=== PATIENT | male | born 1960 | race Caucasian/White ===

== ENCOUNTER 2017-11-11 14:17 | Inpatient (IN) | payer OTHER ==
[~2017-11-11] VITALS: Ht 182.9 cm; Wt 111.6 kg
[~2017-11-11 14:17] MED LIST: ACTOS PO; AMLODIPINE PO; ATORVASTATIN CA20 MG PO; DIOVAN PO; DIOVAN160 MG PO; FUROSEMIDE40 MG PO; HUMALOG; HUMALOG100 UNITS/; JANUVIA PO; LANTUS; LANTUS100 UNITS/ SC; LIPITOR PO; METFORMIN PO; METOPROLOL PO; METOPROLOL SUCC25 MG PO; PLAVIX PO; POTASSIUM CHLO10 MEQ PO; RANEXA500 MG PO; TRICOR PO
[2017-11-11 14:39] LABS: BASOPHILS % 0.4 % (0.0-1.0); EOSINOPHILS # (AUTO) 0.2 (0.0-0.4); EOSINOPHILS % 1.4 % (0.0-6.0); HEMATOCRIT 38.2 % (38.2-49.6); HEMOGLOBIN 13.1 g/dL (14.0-18.0); LYMPHOCYTES # (AUTO) 3.9 (1.0-3.2); LYMPHOCYTES % 37.3 % (18.0-39.1); MEAN CORPUSCULAR HEMOGLOBIN 28.9 pg (28-32); MEAN CORPUSCULAR HGB CONC 34.3 g/dL (31-35); MEAN CORPUSCULAR VOLUME 84.3 fL (81-99); MONOCYTES # (AUTO) 0.8 (0.2-0.8); MONOCYTES % 7.7 % (4.4-11.3); NEUTROPHILS # (AUTO) 5.5 (2.1-6.9); NEUTROPHILS % 52.9 % (38.7-80.0); PLATELET COUNT 203 x10e3/uL (140-360); RED BLOOD COUNT 4.53 x10e6/uL (4.3-5.7); RED CELL DISTRIBUTION WIDTH 12.9 % (11.7-14.4)
[2017-11-11 14:52] LABS: INR 0.91; PROTHROMBIN TIME 12.7 seconds (11.9-14.5)
[2017-11-11 14:53] LABS: PARTIAL THROMBOPLASTIN TIME 31.2 seconds (23.8-35.5)
[2017-11-11 15:02] LABS: ANION GAP 15.5 mmol/L (8-16); CALCIUM 9.3 mg/dL (8.4-10.2); CREATININE, SERUM 1.3 mg/dL (0.72-1.25); POTASSIUM 4.5 mmol/L (3.5-5.1)
--- NOTE | 2017-11-11 15:04 | Diagnostic Imaging Report ---
Portable chest x-ray CPT code 11679 INDICATION: Chest pain, shortness of breath COMPARISON: Chest x-ray 08/04/2016 FINDINGS: Frontal view of the chest obtained at 1229 hours. The cardiac silhouette is enlarged and stable in morphology. Pulmonary vascular markings are normal. Right lateral pleural thickening is new and measures 14 mm. There is adjacent atelectasis. Prominent lung markings in the left midlung field are suggestive atelectasis or scar. No evidence of pneumothorax. The osseous structures are stable with degenerative changes of the spine. There are no focal osseous lesions. IMPRESSION: 1. Stable cardiomegaly. No vascular congestion. 2. Right pleural effusion appears loculated and of uncertain chronicity. Underlying pneumonia cannot be excluded. 3. Scarring in the left midlung field. Signed by: Dr. Ford Montoya MD on 11/11/2017 3:01 PM
[2017-11-11 15:08] LABS: CREATINE KINASE MB 1.6 ng/mL (0.00-5.00); TROPONIN I 0.011 ng/mL (0-0.300)
[2017-11-11] MEDS ORDERED: CLOPIDOGREL75 MG PO (15:20)
[2017-11-11] MEDS ORDERED: SODIUM CHLORIDE 0.9% 1000ML 1,000 ML IV STA (15:20)
[2017-11-11] MEDS ORDERED: DIOVAN HCT 3201 EACH PO (15:20)
[2017-11-11] MEDS ORDERED: CEFTRIAXONE SOD 1 GM VIAL IV STA (15:20)
[2017-11-11] MEDS ORDERED: NORVASC5 MG PO (15:24)
[2017-11-11] MEDS ORDERED: ASPIR 8181 MG PO (15:24)
[2017-11-11] MEDS ORDERED: CENTRUM SILVER1 EAC3 PO (15:25)
[2017-11-11] MEDS ORDERED: VITAMIN C500 M4 PO (15:26)
[2017-11-11 15:43] LABS: AMPHETAMINES SCREEN,URINE NEGATIVE (NEGATIVE); BENZODIAZEPINES SCREEN,URINE NEGATIVE (NEGATIVE); CANNABINOIDS SCREEN,URINE NEGATIVE (NEGATIVE); PHENCYCLIDINE SCREEN,URINE NEGATIVE (NEGATIVE)
[2017-11-11] MEDS ORDERED: AZITHROMYCIN 500MG/NS 250 ML 250 ML IV ONE (16:00)
[2017-11-11] MEDS: SODIUM CHLORIDE 0.9% 1000ML 1,000 ML IV SCH ×2 (16:17→19:44)
[2017-11-11] MEDS ORDERED: DEXTROSE 50% SYRINGE 50 ML IV PRN (17:30)
[2017-11-11] MEDS: INSULIN REGULAR, HUMAN 100 UNIT/1 ML 3ML VIAL SQ SCH (19:58)
[2017-11-11 20:00] VITALS: BP 179/90
[2017-11-12] VITALS: BP 127/72
[2017-11-12] MEDS: ACETAMINOPHEN 325 MG TAB PO PRN (00:36)
[2017-11-12 00:42] LABS: CREATINE KINASE MB 21.4 ng/mL (0.00-5.00)
[2017-11-12 00:43] LABS: TROPONIN I 3.717 ng/mL (0-0.300)
[2017-11-12 04:00] VITALS: BP 145/90
[2017-11-12] MEDS: INSULIN REGULAR, HUMAN 100 UNIT/1 ML 3ML VIAL SQ SCH ×4 (07:30→20:06)
[2017-11-12 07:33] VITALS: BP 151/88
[2017-11-12 08:41] LABS: CHOL/HDL RATIO 3.7 (3.9-4.7)
[2017-11-12 08:57] LABS: CREATINE KINASE MB 19.2 ng/mL (0.00-5.00)
[2017-11-12 09:00] LABS: TROPONIN I 3.967 ng/mL (0-0.300)
[2017-11-12 11:21] VITALS: BP 138/81
[2017-11-12] MEDS: SODIUM CHLORIDE 0.9% 1000ML 1,000 ML IV SCH (12:15)
[2017-11-12 15:40] VITALS: BP 149/85
[2017-11-12] MEDS: AMLODIPINE BESYLATE 5 MG TAB PO SCH (16:45)
[2017-11-12] MEDS: ASPIRIN 325 MG TAB EC PO SCH (16:45)
[2017-11-12] MEDS: INSULIN DETEMIR 100 UNIT/ML PEN SQ SCH ×2 (16:45→20:06)
[2017-11-12] MEDS: ENOXAPARIN SOD INJ 40 MG/0.4 ML SYR SC SCH (17:00)
[2017-11-12] MEDS: METOPROLOL SUCCINATE 25 MG TAB XL PO SCH (17:00)
[2017-11-12] MEDS: RANOLAZINE 500 MG TABSR PO SCH (17:00)
[2017-11-12] MEDS: METFORMIN HCL 850 MG TAB PO SCH (17:15)
[2017-11-12] MEDS: AZITHROMYCIN 500MG/NS 250 ML 250 ML IV SCH (17:30)
[2017-11-12] MEDS: GUAIFENESIN 600MG/DEXTROMETHORPHAN 30MG TABSR PO SCH ×2 (18:00→23:54)
--- NOTE | 2017-11-12 18:22 | History and Physical ---
Patient does not have a local PCP. CHIEF COMPLAINT: Chest pain. HISTORY OF PRESENT ILLNESS: Mr. Cedillo is a 57-year-old gentleman presenting with chest pain that radiated to the left arm, in the left lower chest area. Yesterday it was quite sharp and quite severe initially. It was resolving when the patient presented to the ED for evaluation, and his chest x-ray showed a right lower lobe pneumonia and his initial cardiac enzyme was negative. The patient was admitted for the treatment of pneumonia. REVIEW OF SYSTEMS: He denies fever, chills or weight loss. He denies sinus congestion or sore throat. He had chest pain as noted with no diaphoresis. He had some mild shortness of breath, dyspnea with exertion and a hacking cough. He denies abdominal pain, nausea, vomiting or melena. He denied dysuria or flank pain. He denies rash or pruritus. He denies bleeding or bruising. He denies headache, vertigo or loss of consciousness. He denies depression, agitation, homicidal or suicidal ideation. PAST MEDICAL HISTORY: Significant for longstanding hypertension, type 2 diabetes, chronic kidney disease stage 3, elevated cholesterol, coronary artery disease with previous angioplasty and chronic systolic heart failure with an ejection fraction of 40% and inferior wall hypokinesia, and CKD 3. He has a history of coronary stents in the LAD and RCA done in 2006. He had a followup heart cath done in 2011 that showed the stents to be patent but did show some distal of 40% to 50%, which at the time was elected to treat medically. The patient's current medications include: Norvasc 10 mg daily. Valsartan/hydrochlorothiazide 320/25 daily. Metoprolol 25 mg twice daily. Plavix 75 mg daily. Aspirin 81 mg daily. Lipitor 20 mg at bedtime. Vitamin C 500 mg daily. Ranexa 500 mg twice daily. Multivitamins daily. Metformin 850 mg twice daily. Lantus insulin 12 units twice a day. Lasix 40 mg daily. Potassium 10 mEq daily. HE HAS A STATED ALLERGY TO PENICILLIN. FAMILY HISTORY: Remarkable for hypertension, diabetes and heart disease. SOCIAL HISTORY: The patient quit smoking 30 years ago. He is . Urdu is his primary language. He does not smoke, drink or use illegal drugs, and he is generally independently functioning. PHYSICAL EXAMINATION: PSYCHIATRIC: He is alert and oriented times 3 with normal mood and affect. CONSTITUTIONAL: He has a normal body habitus. Is in no acute distress. VITAL SIGNS: Blood pressure 138/81. Pulse 78 and regular. Respiratory rate 16. O2 sat 97%. Temperature 98.8. HEENT: His head is atraumatic. His eyes are anicteric with clear conjunctivae. Ears and nares are without erythema or discharge. Oropharynx is clear. NECK: Is supple with no mass or thyromegaly. LYMPHATIC SYSTEM: He has no palpable cervical, axillary or inguinal adenopathy. CARDIOVASCULAR: His heart has a regular rate and rhythm. He has a grade 1/6 to 2/6 systolic ejection murmur at the left sternal border without radiation. He has no carotid bruit. He has no peripheral edema and has weak dorsal pedal pulses. RESPIRATORY: Lungs are clear to auscultation and percussion with normal respiratory effort. GASTROINTESTINAL: His abdomen is soft without organomegaly, masses or tenderness. He has normal bowel sounds present. CUTANEOUS: His skin is warm and dry to the touch with no rash or skin breakdown. MUSCULOSKELETAL: His joints are in normal alignment without erythema or swelling. He has no calf tenderness. NEUROLOGIC: Exam is nonfocal with intact cranial nerves and no motor or sensory deficits. DIAGNOSTIC STUDIES: Chest x-ray shows cardiomegaly. There is no pulmonary vascular congestion or edema. He has a loculated right-sided pleural effusion and possible right lower lobe pneumonia. His flu screen is negative. His urine drug screen is negative. His troponin 0.011, 3.717 and 3.967. Cholesterol is 115, HDL 31, LDL 62. The rest of his electrolytes are normal. CO2 24. Creatinine 1.3, BUN 22 for a GFR of 57. Calcium is 9.3. Glucose is 326. Transaminases, bilirubin, and alk phos are normal. CBC shows a white count of 10.2 with 53% neutrophils. Hemoglobin 13.1, hematocrit 38.2 and platelet count 203,000. IMPRESSION AND PLAN: 1. Chest pain/acute [id number] myocardial infarction. The patient has been given aspirin, beta marcio, angiotensin receptor marcio, statin, Lovenox. Will obtain a 2D echocardiogram and consult his care nurse rn, who does come here. 2. Right lower lobe pneumonia. Also with the loculated effusion. Will check a CT scan to further evaluate the effusion and will start with IV Zithromax and Rocephin, nebulizer treatments every 6 hours, and Mucinex to expectorate. 3. Hypertension, complicated by coronary artery disease, complicated by chronic systolic congestive heart failure, complicated by chronic kidney disease 3. The patient's blood pressure is controlled. Will continue his metoprolol, valsartan and Norvasc. 4. Type 2 diabetes with chronic kidney disease stage 3. The patient is currently on metformin. Will have to stop that is the patient needs any contrast imaging and will add sliding-scale insulin and 20 units of Levemir twice daily scheduled. 5. For prophylaxis, the patient will be getting Pepcid for GI prophylaxis and Lovenox for DVT prophylaxis. Job#: [id number] EV
[2017-11-12] MEDS ORDERED: SODIUM CHLORIDE 0.9% 250ML 250 ML ONE (18:26)
[2017-11-12] MEDS: CEFTRIAXONE SOD 1 GM in WATER STERILE 10ML VIAL 10 ML IV SCH (18:30)
[2017-11-12] MEDS ORDERED: ALBUTEROL/IPRATROPIUM 3 ML NEB NEB SCH (19:00)
[2017-11-12 20:00] VITALS: BP 159/90
[2017-11-12] MEDS: ATORVASTATIN 20 MG TAB PO SCH (20:01)
[2017-11-13] VITALS: BP 156/85
[2017-11-13 04:00] VITALS: BP 154/87
[2017-11-13] MEDS: CEFTRIAXONE SOD 1 GM in WATER STERILE 10ML VIAL 10 ML IV SCH ×2 (05:24→18:48)
[2017-11-13] MEDS: GUAIFENESIN 600MG/DEXTROMETHORPHAN 30MG TABSR PO SCH ×4 (05:24→23:53)
[2017-11-13 07:04] LABS: BASOPHILS % 0.3 % (0.0-1.0); EOSINOPHILS # (AUTO) 0.1 (0.0-0.4); EOSINOPHILS % 1.5 % (0.0-6.0); HEMATOCRIT 34.3 % (38.2-49.6); HEMOGLOBIN 11.4 g/dL (14.0-18.0); LYMPHOCYTES # (AUTO) 2.4 (1.0-3.2); MEAN CORPUSCULAR HEMOGLOBIN 28.4 pg (28-32); MEAN CORPUSCULAR HGB CONC 33.2 g/dL (31-35); MEAN CORPUSCULAR VOLUME 85.5 fL (81-99); MONOCYTES # (AUTO) 0.5 (0.2-0.8); MONOCYTES % 7.1 % (4.4-11.3); NEUTROPHILS # (AUTO) 4.3 (2.1-6.9); NEUTROPHILS % 57.8 % (38.7-80.0); PLATELET COUNT 134 x10e3/uL (140-360); RED BLOOD COUNT 4.01 x10e6/uL (4.3-5.7); RED CELL DISTRIBUTION WIDTH 13.1 % (11.7-14.4)
[2017-11-13] MEDS ORDERED: IOPAMIDOL 370 MG/ML 200 ML INFUS..BTL INJ ONE (07:17)
[2017-11-13] MEDS ORDERED: SODIUM CHLORIDE 0.9% 50ML 50 ML ONE (07:17)
[2017-11-13 07:21] LABS: ANION GAP 10.9 mmol/L (8-16); BLOOD UREA NITROGEN 17 mg/dL (7-26); BUN/CREATININE RATIO 18 (6-25); CALCIUM 8.7 mg/dL (8.4-10.2); CARBON DIOXIDE 22 mmol/L (22-29); CHLORIDE 107 mmol/L (98-107); CREATININE, SERUM 0.97 mg/dL (0.72-1.25); EST GLOMERULAR FILTRATION RATE > 60 ML/MIN (60-); GLUCOSE 124 mg/dL (74-118); MAGNESIUM 1.8 MG/DL (1.3-2.1); POTASSIUM 3.9 mmol/L (3.5-5.1); SODIUM 136 mmol/L (136-145)
[2017-11-13 07:42] LABS: FREE T4 (FREE THYROXINE) 0.96 ng/dL (0.8-1.8); THYROID STIMULATING HORMONE 1.001 uIU/mL (0.350-4.940)
[2017-11-13] MEDS: INSULIN REGULAR, HUMAN 100 UNIT/1 ML 3ML VIAL SQ SCH ×4 (07:45→21:20)
--- NOTE | 2017-11-13 07:49 | Diagnostic Imaging Report ---
CT chest with enhancement CPT code: 14353 INDICATION: Loculated right pleural effusion TECHNIQUE: 5 mm collimation axial images obtained from the thoracic inlet to the level of the diaphragm following uneventful administration of 100 cc of low osmolar, nonionic intravenous contrast. RADIATION DOSE: Total DLP: 524.7 mGy*cm Estimated effective dose: (DLP x 0.015 x size factor) mSv CTDIvol has been reviewed. It is below the limits set by the Radiation Protocol Committee (RPC). COMPARISON: Chest x-ray 11/11/2017. CHEST FINDINGS: Lymph nodes: No enlarged axillary or supraclavicular lymph nodes. Subcarinal lymph node measures 2.2 cm in AP dimension. No evidence of hilar lymphadenopathy. Thyroid: Normal in size without mass in the visualized parenchyma. Mediastinum: The heart is enlarged with diffuse coronary artery calcifications and a stent in the LAD. No pericardial effusion. The esophagus is collapsed. Lungs: Right lung: Diffusely hyperinflated. There are bands of subsegmental atelectasis in the lateral middle lobe and particularly the posterior lower lobe, where there is round atelectasis. There is pleural thickening and superimposed calcifications in the mid and lower lung zones, particularly in the posterior chest. Pleural thickening measures up to 2 cm. Within the posterior pleural thickening is a loculated effusion measuring 4.7 cm in craniocaudal dimension and 1.4 x 3.0 cm in the axial plane. A small amount of fluid tracks into the apex of the major fissure. There is diffuse bronchial wall thickening. The airways are patent. Left lung: Diffusely hyperinflated. Bands of subsegmental atelectasis present throughout, particularly the lower lung zones. There is diffuse pleural thickening with superimposed calcifications. Posterior pleural thickening measures 15 mm in AP thickness. There is a small amount of fluid in the apex of the major fissure. There is diffuse bronchial wall thickening. The airways are patent. ABDOMEN: Visualized portions of the liver, spleen, gallbladder, pancreas and adrenal glands are unremarkable. Bones: Mild degenerative changes of the spine consistent with age. No focal osseous lesions. IMPRESSION: 1. Diffuse pleural thickening with superimposed calcification suggestive of asbestos related pleural disease. 2. Loculated effusion in the posterior right hemithorax surrounded by thickened pleura. Small pleural effusions in the major fissures. 3. COPD and bands of chronic atelectasis as described above. Chronic bronchitis. 4. Cardiomegaly and atherosclerosis. 5.. Surveillance of the lungs with CT is recommended to screen for mesothelioma. Signed by: Dr. Ford Montoya MD on 11/13/2017 7:45 AM
[2017-11-13 08:00] VITALS: BP 161/91
[2017-11-13] MEDS: METFORMIN HCL 850 MG TAB PO SCH ×2 (08:00→16:30)
[2017-11-13] MEDS: FAMOTIDINE 20 MG TAB PO SCH ×2 (08:00→16:45)
[2017-11-13] MEDS: RANOLAZINE 500 MG TABSR PO SCH ×2 (08:45→16:30)
[2017-11-13] MEDS: ASCORBIC ACID 500 MG TAB PO SCH (08:45)
[2017-11-13] MEDS: INSULIN DETEMIR 100 UNIT/ML PEN SQ SCH ×2 (08:45→21:20)
[2017-11-13] MEDS: AMLODIPINE BESYLATE 5 MG TAB PO SCH (08:45)
[2017-11-13] MEDS: CLOPIDOGREL BISULFATE 75 MG TAB PO SCH (08:45)
[2017-11-13] MEDS: ASPIRIN 325 MG TAB EC PO SCH (08:45)
[2017-11-13] MEDS: METOPROLOL SUCCINATE 25 MG TAB XL PO SCH ×2 (08:45→16:30)
[2017-11-13] MEDS ORDERED: VALSARTAN 160 MG TAB PO SCH (09:00)
[2017-11-13] MEDS: LYCOPENE PO SCH (09:00)
[2017-11-13] MEDS: LUTEIN PO SCH (09:00)
[2017-11-13] MEDS: MU VITS MIN TH PO SCH (09:00)
--- NOTE | 2017-11-13 10:19 | Consultation ---
DATE OF CONSULTATION: PULMONARY/CRITICAL CARE CONSULTATION CHIEF COMPLAINT: Chest pain. HISTORY OF PRESENT ILLNESS: The patient is a 57-year-old man. He has a history of abnormal x-rays dating back to 2011. His prior chest x-ray from April of 2012 showed pleural thickening bilaterally, more on the right than the left. A subsequent x-ray in July of 2016 showed similar bilateral pleural thickening. The CT scan from today shows diffuse bilateral pleural thickening and calcification with some possible loculated fluid in the right posterior hemithorax. The patient came to the emergency department with about 4 hours of upper sternal chest pain. It came spontaneously, and was relieved with treatment in the emergency department. Subsequent cardiac enzymes are positive with a troponin I of 3.9. PAST MEDICAL HISTORY 1. Diabetes. 2. Hypertension. 3. Prior echocardiogram which showed a decreased ejection fraction 40%. PAST SURGICAL HISTORY 1. Coronary artery stent in the left anterior descending and right coronary artery in 2006. 2. Followup cardiac catheterization in 2011 showed the stents to be patent, and a followup stress test in 2015 showed no reversible ischemia. ALLERGIES: THE PATIENT IS ALLERGIC TO PENICILLIN. FAMILY HISTORY: Hypertension, diabetes and heart disease. SOCIAL HISTORY: The patient quit smoking 35-40 years ago. He is not a drinker. REVIEW OF SYSTEMS: The patient is afebrile. He does not complain of any headache. He does have some cough and sinus drainage. He does not complain of any neck pain or swollen glands. He did have chest pain as noted above. He is not complaining of dyspnea. He has no abdominal pain. There is no leg edema or calf tenderness. He has no focal neurological abnormalities. PHYSICAL EXAMINATION VITAL SIGNS: Stable. The blood pressure is 161/90 and the pulse is 91. The respiratory rate is 22 and the saturation is 98%. HEENT: Shows no facial swelling or erythema. The nasal mucosa is normal. The oropharynx is normal. LYMPHATIC: Shows no submandibular, cervical or supraclavicular adenopathy. NECK: Shows no JVD or thyromegaly. There is no nuchal rigidity. CARDIAC: Reveals a regular rate and rhythm with a normal S1 and S2. There are no murmurs or rubs. LUNGS: Auscultation of the lungs reveals rhonchus breath sounds bilaterally. There is no wheezing. There are some decreased breath sounds at the bases. ABDOMEN: Soft and nontender. There is no rebound or guarding. EXTREMITIES: Shows no leg edema or calf tenderness. There is no cyanosis or clubbing. SKIN: Shows no rashes. NEUROLOGIC: Shows no focal abnormalities. LABORATORY DATA: The white blood cell count is 7.3, hemoglobin is 11.4. The platelet count 134,000. The troponin I is 3.9 at peak. The electrolytes, BUN and creatinine are within normal limits. RADIOGRAPHIC DATA: The chest CT shows bilateral calcified pleural thickening. There is some small loculated effusion on the right side. IMPRESSION 1. Asbestos related lung disease. 2. Nontransmural myocardial infarction. 3. Diabetes. 4. Hypertension. PLAN 1. The patient will need a followup CT scan in about 6 months to re-evaluate the area of loculated fluid in the right pleural space. 2. Cardiology evaluation. 3. Pneumonia seems very unlikely given the chronic x-ray changes, lack of fever, and lack of productive cough. Once the cultures come back negative, the antibiotics can be stopped. Job#: [id number] PILY
[2017-11-13 12:00] VITALS: BP 144/80
[2017-11-13] MEDS ORDERED: NITROGLYCERIN 0.4 MG SUBL SL PRN (13:00)
[2017-11-13] MEDS ORDERED: METOPROLOL TARTRATE INJ 1 MG/ML VIAL IV PRN (13:00)
[2017-11-13] MEDS ORDERED: HYDRALAZINE HCL 20 MG/ML VIAL IV PRN (13:00)
[2017-11-13 13:17] LABS: CHOL/HDL RATIO 3.4 (3.9-4.7); MAGNESIUM 1.7 MG/DL (1.3-2.1); URIC ACID 7.2 mg/dL (3.5-7.2)
[2017-11-13 13:37] LABS: THYROID STIMULATING HORMONE 1.076 uIU/mL (0.350-4.940)
[2017-11-13 16:00] VITALS: BP 152/79
[2017-11-13] MEDS: AZITHROMYCIN 500MG/NS 250 ML 250 ML IV SCH (16:30)
[2017-11-13] MEDS: ENOXAPARIN SOD INJ 40 MG/0.4 ML SYR SC SCH (16:30)
[2017-11-13 20:00] VITALS: BP 153/74
[2017-11-13] MEDS: ATORVASTATIN 20 MG TAB PO SCH (20:49)
[2017-11-14] VITALS: BP 138/74
[2017-11-14 04:00] VITALS: BP 163/76
[2017-11-14] MEDS ORDERED: CEFTRIAXONE SOD 1 GM VIAL ONE (05:27)
[2017-11-14] MEDS: CEFTRIAXONE SOD 1 GM in WATER STERILE 10ML VIAL 10 ML IV SCH ×2 (05:48→18:26)
[2017-11-14] MEDS: GUAIFENESIN 600MG/DEXTROMETHORPHAN 30MG TABSR PO SCH ×4 (05:48→23:23)
[2017-11-14 06:53] LABS: BASOPHILS % 0.4 % (0.0-1.0); EOSINOPHILS # (AUTO) 0.1 (0.0-0.4); EOSINOPHILS % 1.8 % (0.0-6.0); HEMATOCRIT 33.4 % (38.2-49.6); HEMOGLOBIN 11.2 g/dL (14.0-18.0); LYMPHOCYTES # (AUTO) 2.5 (1.0-3.2); LYMPHOCYTES % 32.5 % (18.0-39.1); MEAN CORPUSCULAR HEMOGLOBIN 28.4 pg (28-32); MEAN CORPUSCULAR HGB CONC 33.5 g/dL (31-35); MEAN CORPUSCULAR VOLUME 84.8 fL (81-99); MONOCYTES # (AUTO) 0.5 (0.2-0.8); MONOCYTES % 6.6 % (4.4-11.3); NEUTROPHILS # (AUTO) 4.4 (2.1-6.9); NEUTROPHILS % 58.3 % (38.7-80.0); PLATELET COUNT 172 x10e3/uL (140-360); RED BLOOD COUNT 3.94 x10e6/uL (4.3-5.7); RED CELL DISTRIBUTION WIDTH 13.1 % (11.7-14.4)
[2017-11-14] MEDS: INSULIN REGULAR, HUMAN 100 UNIT/1 ML 3ML VIAL SQ SCH ×4 (07:30→21:00)
[2017-11-14 07:35] LABS: ANION GAP 13.4 mmol/L (8-16); BLOOD UREA NITROGEN 19 mg/dL (7-26); BUN/CREATININE RATIO 17 (6-25); CARBON DIOXIDE 22 mmol/L (22-29); CHLORIDE 108 mmol/L (98-107); CREATININE, SERUM 1.11 mg/dL (0.72-1.25); EST GLOMERULAR FILTRATION RATE > 60 ML/MIN (60-); GLUCOSE 78 mg/dL (74-118); POTASSIUM 4.4 mmol/L (3.5-5.1); SODIUM 139 mmol/L (136-145)
[2017-11-14] MEDS: ASPIRIN 325 MG TAB EC PO SCH (07:45)
[2017-11-14] MEDS: METFORMIN HCL 850 MG TAB PO SCH ×2 (07:45→16:42)
[2017-11-14] MEDS: FAMOTIDINE 20 MG TAB PO SCH ×2 (07:45→16:42)
[2017-11-14] MEDS: CLOPIDOGREL BISULFATE 75 MG TAB PO SCH (07:45)
[2017-11-14 08:00] VITALS: BP 149/82
[2017-11-14] MEDS: RANOLAZINE 500 MG TABSR PO SCH ×2 (08:00→16:43)
[2017-11-14] MEDS: HYDROCHLOROTHIAZIDE 25 MG TAB PO SCH (08:00)
[2017-11-14] MEDS: AMLODIPINE BESYLATE 5 MG TAB PO SCH (08:00)
[2017-11-14] MEDS: INSULIN DETEMIR 100 UNIT/ML PEN SQ SCH ×2 (08:00→21:30)
[2017-11-14] MEDS: VALSARTAN 160 MG TAB PO SCH (08:05)
[2017-11-14] MEDS: METOPROLOL SUCCINATE 25 MG TAB XL PO SCH ×2 (08:45→16:43)
[2017-11-14] MEDS: ASCORBIC ACID 500 MG TAB PO SCH (08:45)
[2017-11-14] MEDS: LYCOPENE PO SCH (09:00)
[2017-11-14] MEDS: LUTEIN PO SCH (09:00)
[2017-11-14] MEDS: MU VITS MIN TH PO SCH (09:00)
[2017-11-14 12:00] VITALS: BP 143/75
[2017-11-14 16:00] VITALS: BP 138/63
[2017-11-14] MEDS: AZITHROMYCIN 500MG/NS 250 ML 250 ML IV SCH (16:42)
[2017-11-14 20:00] VITALS: BP 149/78
[2017-11-14] MEDS: ATORVASTATIN 20 MG TAB PO SCH (21:15)
[2017-11-15] VITALS (13 sets, daily range): BP systolic 139–166; BP diastolic 78–95
[2017-11-15] MEDS: GUAIFENESIN 600MG/DEXTROMETHORPHAN 30MG TABSR PO SCH ×2 (05:57→11:32)
[2017-11-15] MEDS: CEFTRIAXONE SOD 1 GM in WATER STERILE 10ML VIAL 10 ML IV SCH (06:03)
[2017-11-15 07:19] LABS: BASOPHILS % 0.3 % (0.0-1.0); EOSINOPHILS # (AUTO) 0.1 (0.0-0.4); EOSINOPHILS % 1.4 % (0.0-6.0); HEMATOCRIT 33.3 % (38.2-49.6); HEMOGLOBIN 11.2 g/dL (14.0-18.0); LYMPHOCYTES # (AUTO) 2.5 (1.0-3.2); LYMPHOCYTES % 34.1 % (18.0-39.1); MEAN CORPUSCULAR HEMOGLOBIN 28.6 pg (28-32); MEAN CORPUSCULAR HGB CONC 33.6 g/dL (31-35); MEAN CORPUSCULAR VOLUME 84.9 fL (81-99); MONOCYTES # (AUTO) 0.6 (0.2-0.8); MONOCYTES % 7.9 % (4.4-11.3); NEUTROPHILS # (AUTO) 4.1 (2.1-6.9); NEUTROPHILS % 56.2 % (38.7-80.0); PLATELET COUNT 183 x10e3/uL (140-360); RED BLOOD COUNT 3.92 x10e6/uL (4.3-5.7); RED CELL DISTRIBUTION WIDTH 13.3 % (11.7-14.4)
[2017-11-15] MEDS: FAMOTIDINE 20 MG TAB PO SCH (07:30)
[2017-11-15] MEDS: INSULIN REGULAR, HUMAN 100 UNIT/1 ML 3ML VIAL SQ SCH ×2 (07:30→11:30)
[2017-11-15 07:38] LABS: INR 1.03; PARTIAL THROMBOPLASTIN TIME 32.4 seconds (23.8-35.5)
[2017-11-15 07:49] LABS: ANION GAP 12.3 mmol/L (8-16); BLOOD UREA NITROGEN 21 mg/dL (7-26); BUN/CREATININE RATIO 18 (6-25); CALCIUM 8.9 mg/dL (8.4-10.2); CARBON DIOXIDE 22 mmol/L (22-29); CHLORIDE 109 mmol/L (98-107); CREATININE, SERUM 1.19 mg/dL (0.72-1.25); EST GLOMERULAR FILTRATION RATE > 60 ML/MIN (60-); GLUCOSE 89 mg/dL (74-118); POTASSIUM 4.3 mmol/L (3.5-5.1); SODIUM 139 mmol/L (136-145)
[2017-11-15] MEDS: METFORMIN HCL 850 MG TAB PO SCH (08:00)
[2017-11-15] MEDS ORDERED: FENTANYL CITRATE/PF 100MCG/2 ML INJ ONE (08:10)
[2017-11-15] MEDS ORDERED: HEPARIN SOD/SOD CHLORIDE 2,000 ML ONE (08:11)
[2017-11-15] MEDS ORDERED: LIDOCAINE HCL 2% LOCAL 20 ML VIAL ONE (08:11)
[2017-11-15] MEDS ORDERED: SODIUM CHLORIDE 0.9% 1000ML 1,000 ML ONE (08:11)
[2017-11-15] MEDS ORDERED: MIDAZOLAM HCL 2 MG/2 ML VIAL ONE (08:11)
[2017-11-15] MEDS ORDERED: IOPAMIDOL 370 MG/ML 200 ML INFUS..BTL INJ ONE ×2 (08:14→08:40)
[2017-11-15] MEDS: RANOLAZINE 500 MG TABSR PO SCH (08:32)
[2017-11-15] MEDS: LYCOPENE PO SCH (08:32)
[2017-11-15] MEDS: METOPROLOL SUCCINATE 25 MG TAB XL PO SCH (08:32)
[2017-11-15] MEDS: MU VITS MIN TH PO SCH (08:32)
[2017-11-15] MEDS: LUTEIN PO SCH (08:32)
[2017-11-15] MEDS: INSULIN DETEMIR 100 UNIT/ML PEN SQ SCH (08:33)
--- NOTE | 2017-11-15 10:59 | Operative Report ---
DATE OF PROCEDURE: November 15, 2017 PROCEDURE: Cardiac catheterization. INDICATIONS: [id number]-[id number]-yfgzhmtoo [place]. DESCRIPTION OF PROCEDURE: After informed consent, the patient was brought to the cardiac catheterization laboratory and placed on the table. Both groins were painted and draped in a sterile fashion. Lidocaine injected in the right groin for local anesthesia. Right femoral artery was accessed by Seldinger technique, and a 5-Singaporean sheath was placed in the right femoral artery. Left main artery was cannulated using a JL4 5-Singaporean catheter. Coronary angiogram was performed and images obtained in multiple views. Right coronary artery was cannulated using a 3DRC 5-Singaporean catheter. Coronary angiogram was performed and images obtained in multiple views. LV-gram was performed using a pigtail catheter. Patient tolerated the procedure without any complications. REPORT LEFT MAIN: Normal caliber. There is a 20% distal lesion. LEFT ANTERIOR DESCENDING: Normal caliber. There is mild diffuse disease with a 30% mid-lesion. The stent in the proximal LAD is patent with luminal irregularities. LEFT CIRCUMFLEX: Normal caliber. There is diffuse luminal irregularities. RIGHT CORONARY ARTERY: Normal caliber. There is mild disease. The stent in the distal right coronary artery is patent. Distal to the stent is about a 60% lesion with an artery that tapers off. LV-GRAM: Preserved LV function. Overall EF is about 50% to 55%. HEMODYNAMICS: Aortic pressure is 144/70. LV pressure 179/14. LVEDP is 27. Patient has mild to moderate aortic stenosis. PLAN: Medical management. Job#: [id number] NH
[2017-11-15] MEDS: CLOPIDOGREL BISULFATE 75 MG TAB PO SCH (11:31)
[2017-11-15] MEDS: ASPIRIN 325 MG TAB EC PO SCH (11:31)
[2017-11-15] MEDS: HYDROCHLOROTHIAZIDE 25 MG TAB PO SCH (11:31)
[2017-11-15] MEDS: VALSARTAN 160 MG TAB PO SCH (11:31)
[2017-11-15] MEDS: AMLODIPINE BESYLATE 5 MG TAB PO SCH (11:31)
[2017-11-15] MEDS: ASCORBIC ACID 500 MG TAB PO SCH (11:31)
[2017-11-15] MEDS: ACETAMINOPHEN 325 MG TAB PO PRN (13:32)
[2017-11-15] MEDS ORDERED: FAMOTIDINE20 MG PO (13:38)
[2017-11-15] MEDS ORDERED: NITROSTAT0.4 MG SL (13:38)
[2017-11-15] MEDS ORDERED: MUCINEX DM ER1 EACH PO (13:38)
[2017-11-15] MEDS ORDERED: ASPIRIN ENTERI325 MG PO (13:38)
[2017-11-15] MEDS ORDERED: AZITHROMYC100 MG/5 M PO (14:00)
--- NOTE | 2017-11-15 17:00 | Discharge Summary ---
PERTINENT HISTORY AND PHYSICAL FINDINGS: Mr. Cedillo is a 57-year-old gentleman who presented with chest pain that radiated to the left arm and the left lower chest area the day prior to admission. It was quite sharp and severe initially. It was resolving when the patient presented to the emergency department for evaluation. His chest x-ray showed a right lower lobe pneumonia with negative cardiac enzymes. He was admitted for the treatment of pneumonia. PAST MEDICAL HISTORY: Significant for longstanding hypertension, type-2 diabetes mellitus, chronic kidney disease stage 3, elevated cholesterol, coronary artery disease with previous angioplasty and chronic systolic heart failure with an ejection fraction of 40% and inferior wall hypokinesia. He has a history of coronary artery stents in the LAD and RCA done in 2006, and he had a followup heart cath done in 2011 that showed the stents to be patent but did show some distal disease of 40% to 50%, which at the time was elected to be treated medically. ALLERGIES: HE HAS A STATED ALLERGY TO PENICILLIN. FAMILY HISTORY: Remarkable for hypertension, diabetes, and heart disease. The patient quit smoking 30 years ago. ADMITTING DIAGNOSES 1. Chest pain/nonacute ST-elevation myocardial infarction. 2. Right lower lobe pneumonia. 3. Hypertension complicated by coronary artery disease complicated by chronic systolic congestive heart failure complicated by chronic kidney disease, stage 3. 4. Type-2 diabetes mellitus with chronic kidney disease, stage 3. DISCHARGE DIAGNOSES 1. Chest pain/qfm-GX-gclcizkgy myocardial infarction. 2. Right lower lobe pneumonia with loculated effusion versus asbestosis. 3. Hypertension with coronary artery disease with systolic congestive heart failure with chronic kidney disease, stage 3. 4. Type-2 diabetes mellitus with chronic kidney disease, stage 3. 5. Elevated troponin. 6. Anemia. CONSULTING PHYSICIANS 1. Darell Walker MD, pulmonary. 2. Thierry Walker MD, cardiovascular. Pulmonary physician indicated the patient really needs to have a repeat chest CT as an outpatient in 6 weeks in order to follow up on possible asbestosis as the patient could have underlying mesothelioma. [employer] Operator completed left heart cath today, which showed mild disease. On admission, the chest x-ray showed cardiomegaly. There was no pulmonary venous congestion or edema. He had a loculated right-sided pleural effusion and possible right lower lobe pneumonia. The flu screen was negative. The urine drug screen was negative. His troponins were 0.011, 3.717, and 3.967. Cholesterol was 115, HDL 31, LDL 62. Other electrolytes were normal. Creatinine was 1.3 and BUN 22 for a GFR of 57. Glucose 326. CBC showed a white count of 10.2 with 53% neutrophils, hemoglobin 13.1, hematocrit 38.2, and platelet count 233,000. During his stay, he had an echocardiogram on 11/13/2017, which showed estimated ejection fraction of 60% to 65% and left ventricular hypertrophy. EKG had shown normal sinus rhythm without ST elevation. CT of the chest had shown diffuse pleural thickening, possible asbestosis, loculated effusion, small pleural effusion, COPD, chronic bronchitis. On November 14, 2017, the hemoglobin A1c was 6.6%. Blood culture and sensitivities from November 11, 2017, had shown no growth after 72 hours. Sputum Gram stain culture and sensitivity had been ordered on the but not collected. Today, on November 15, 2017, the sodium was 139, potassium 4.3, chloride 109, CO2 22, BUN 21, creatinine 1.19, glucose 89. WBC 7.24, hemoglobin 11.2, hematocrit 33.3, platelets 183. PT 14, PTT 32.4. GFR greater than 60. Calcium 8.9. PHYSICAL EXAMINATION VITAL SIGNS: Temperature 98.0, heart rate 63, blood pressure 152/82 with a MAP of 105, respiratory rate 18, oxygen saturation 100% on room air. GENERAL: Patient lying flat status post heart cath. The patient is understanding that he needs to remain flat for at least 6 hours. He still has a mild nonproductive cough, mild headache at times. He states he had a bowel movement today. LUNGS: Clear to auscultation. Relaxed respirations on room air. HEENT: The extraocular eye movements intact. NECK: Supple. No lymphadenopathy, thyromegaly or JVD. CARDIOVASCULAR: Regular rate and rhythm. He does have a holosystolic murmur. ABDOMEN: Bowel sounds positive times 4 quadrants. Soft. Nontender. Obese. EXTREMITIES: Without pitting edema. No clubbing, cyanosis or marked swelling. He has no signs or symptoms of DVT. NEUROLOGIC: GCS 15, nonfocal. Will continue the patient's home medications and discharge on azithromycin p.o. as well as Levaquin. Continue cardiac diet. Follow up with PCP in 1 to 2 weeks. Follow up with cardiology and pulmonology as directed. Dictated by Gregory Pedroza, MINNA. TARYN RIOS MD Job#: [id number]
== END 2017-11-15 15:58 | disposition home or self-care (01) | DRG 281 ==
LOC: ER 14:17 → ERHOLD 17:22 → MED/SURG3 17:28
PROVIDERS: ADMIT Internal Medicine; ATTEND Internal Medicine
PROC: 4A023N7 Measurement of Cardiac Sampling and Pressure, Left Heart, Percutaneous Approach (ICD-10-PCS; principal; 2017-11-15)
PROC: B2111ZZ Fluoroscopy of Multiple Coronary Arteries using Low Osmolar Contrast (ICD-10-PCS; 2017-11-15)
PROC: B2151ZZ Fluoroscopy of Left Heart using Low Osmolar Contrast (ICD-10-PCS; 2017-11-15)
DX: I21.4 Non-ST elevation (NSTEMI) myocardial infarction (principal); I13.0 Hypertensive heart and chronic kidney disease with heart failure and stage 1 through stage 4 chronic kidney disease, or unspecified chronic kidney disease; I50.22 Chronic systolic (congestive) heart failure; E11.22 Type 2 diabetes mellitus with diabetic chronic kidney disease; I25.10 Atherosclerotic heart disease of native coronary artery without angina pectoris; N18.3 Chronic kidney disease, stage 3 (moderate); Z95.5 Presence of coronary angioplasty implant and graft; J61 Pneumoconiosis due to asbestos and other mineral fibers; Z87.891 Personal history of nicotine dependence; I51.7 Cardiomegaly
CPT/HCPCS: 36140; 36415; 71010; 71260; 77002; 80048; 80053; 80061; 80307; 82550; 82553; 82948; 83036; 83735; 83880; 84100; 84439; 84443; 84484; 84550; 85025; 85610; 85730; 87040; 87400; 93005; 93306; 93452; 93458; 99284; J0456; J0696; J1650; J2001; J2250; J7030; J7050; Q9967

== ENCOUNTER 2018-02-28 17:15 | Inpatient (IN) | payer OTHER ==
[~2018-02-28] VITALS: Ht 182.9 cm; Wt 110.7 kg
[~2018-02-28 17:15] MED LIST changes: +ASPIR 8181 MG PO; +ASPIRIN ENTERI325 MG PO; +AZITHROMYC100 MG/5 M PO; +CENTRUM SILVER1 EAC3 PO; +CLOPIDOGREL75 MG PO; +DIOVAN HCT 3201 EACH PO; +FAMOTIDINE20 MG PO; +MUCINEX DM ER1 EACH PO; +NITROSTAT0.4 MG SL; +NORVASC5 MG PO; +VITAMIN C500 M4 PO
--- OUTSIDE RECORDS SUMMARY | 2018-02-28 17:18 | XMS REPORT ---
Author Author [facility] Address Unknown Phone Unavailable Care Team Providers Care In Home Sales Representative Name Role Phone TARYN RIOS Unavailable Unavailable Problems This patient has no known problems. Allergies, Adverse Reactions, Alerts This patient has no known allergies or adverse reactions. Medications This patient has no known medications. Results Test Description Test Time Test Comments Text Results Atomic Results Result Comments CT CHEST W [address] [address] Patient Name: ABELARDO PEREZ MR #: [id number] : 1960 Age/Sex: 57/M Req # : [id number] Adm Physician: TARYN RIOS MD Ordered by: TARYN RIOS MD Report #: [id number] Location: [facility] Room/Bed: [facility] _ Procedure: [id number] CT/CT CHEST W Exam Date: 11/13/17 Exam Time: 0630 REPORT STATUS: Signed CT chest with enhancement CPT code: 97499 INDICATION: Loculated right pleural effusion TECHNIQUE: 5 mm collimation axial images obtained from the thoracic inlet to the level of the diaphragm following uneventful administration of 100 cc of low osmolar, nonionic intravenous contrast. RADIATION DOSE: Total DLP: 524.7 mGy*cm Estimated effective dose: (DLP x 0.015 x size factor) mSv CTDIvol has been reviewed. It is below the limits set by the Radiation Protocol Committee (RPC). COMPARISON: Chest x-ray 11/11/2017. CHEST FINDINGS: Lymph nodes: No enlarged axillary or supraclavicular lymph nodes. Subcarinal lymph node measures 2.2 cm in AP dimension. No evidence of hilar lymphadenopathy. Thyroid: Normal in size without mass in the visualized parenchyma. Mediastinum: The heart is enlarged with diffuse coronary artery calcifications and a stent in the LAD. No pericardial effusion. The esophagus is collapsed. Lungs: Right lung: Diffusely hyperinflated. There are bands of subsegmental atelectasis in the lateral middle lobe and particularly the posterior lower lobe, where there is round atelectasis. There is pleural thickening and superimposed calcifications in the mid and lower lung zones, particularly in the posterior chest. Pleural thickening measures up to 2 cm. Within the posterior pleural thickening is a loculated effusion measuring 4.7 cm in craniocaudal dimension and 1.4 x 3.0 cm in the axial plane. A small amount of fluid tracks into the apex of the major fissure. There is diffuse bronchial wall thickening. The airways are patent. Left lung: Diffusely hyperinflated. Bands of subsegmental atelectasis present throughout, particularly the lower lung zones. There is diffuse pleural thickening with superimposed calcifications. Posterior pleural thickening measures 15 mm in AP thickness. There is a small amount of fluid in the apex of the major fissure. There is diffuse bronchial wall thickening. The airways are patent. ABDOMEN: Visualized portions of the liver, spleen, gallbladder, pancreas and adrenal glands are unremarkable. Bones: Mild degenerative changes of the spine consistent with age. No focal osseous lesions. IMPRESSION: 1. Diffuse pleural thickening with superimposed calcification suggestive of asbestos related pleural disease. 2. Loculated effusion in the posterior right hemithorax surrounded by thickened pleura. Small pleural effusions in the major fissures. 3. COPD and bands of chronic atelectasis as described above. Chronic bronchitis. 4. Cardiomegaly and atherosclerosis. 5.. Surveillance of the lungs with CT is recommended to screen for mesothelioma. Signed by: Dr. Lucas Montoya MD on 2017 7:45 AM Dictated By: LUCAS MONTOYA MD Transcribed By: DAVID on 11/13/1764 COPY TO: TARYN RIOS MD CHEST SINGLE (PORTABLE) [place] [address] Patient Name: ABELARDO PEREZ MR #: [id number] : 1960 Age/Sex: 57/M Req #: [id number] Adm Physician: Ordered by: CAMMY HANKS MD Report #: [id number] Location: ER Room/Bed: Procedure: [id number] DX/CHEST SINGLE (PORTABLE) Exam Date: 11/11/17 Exam Time: 1450 REPORT STATUS: Signed Portable chest x -ray CPT code 43264 INDICATION: Chest pain, shortness of breath COMPARISON: Chest x-ray 08/04/2016 FINDINGS: Frontal view of the chest obtained at 1229 hours. The cardiac silhouette is enlarged and stable in morphology. Pulmonary vascular markings are normal. Right lateral pleural thickening is new and measures 14 mm. There is adjacent atelectasis. Prominent lung markings in the left midlung field are suggestive atelectasis or scar. No evidence of pneumothorax. The osseous structures are stable with degenerative changes of the spine. There are no focal osseous lesions. IMPRESSION: 1. Stable cardiomegaly. No vascular congestion. 2. Right pleural effusion appears loculated and of uncertain chronicity. Underlying pneumonia cannot be excluded. 3. Scarring in the left midlung field. Signed by: Dr. Lucas Montoya MD on 11/11/2017 3:01 PM Dictated By: LUCAS MONTOYA MD 1501 Transcribed By: DAVID on 11/11/17 1501 COPY TO: CAMMY HANKS MD
[2018-02-28] MEDS ORDERED: DILTIAZEM HCL VIAL 5 ML ONE (17:28)
[2018-02-28] MEDS ORDERED: DILTIAZEM HCL 5 MG/ML 5 ML VIAL IV ONE (17:30)
[2018-02-28] MEDS ORDERED: ACETAMINOPHEN325 M1 PO (17:35)
[2018-02-28] MEDS ORDERED: ASPIR-LOW81 MG PO (17:35)
[2018-02-28] MEDS ORDERED: METOPROLOL TART25 MG PO (17:35)
[2018-02-28 17:45] LABS: BASOPHILS % 0.4 % (0.0-1.0); EOSINOPHILS # (AUTO) 0.2 (0.0-0.4); EOSINOPHILS % 1.5 % (0.0-6.0); HEMOGLOBIN 12.2 g/dL (14.0-18.0); LYMPHOCYTES # (AUTO) 3.5 (1.0-3.2); LYMPHOCYTES % 34.4 % (18.0-39.1); MEAN CORPUSCULAR HEMOGLOBIN 27.9 pg (28-32); MEAN CORPUSCULAR HGB CONC 33.9 g/dL (31-35); MEAN CORPUSCULAR VOLUME 82.4 fL (81-99); MONOCYTES # (AUTO) 0.8 (0.2-0.8); MONOCYTES % 7.6 % (4.4-11.3); NEUTROPHILS # (AUTO) 5.7 (2.1-6.9); NEUTROPHILS % 55.8 % (38.7-80.0); PLATELET COUNT 165 x10e3/uL (140-360); RED BLOOD COUNT 4.37 x10e6/uL (4.3-5.7); RED CELL DISTRIBUTION WIDTH 13.2 % (11.7-14.4)
[2018-02-28 17:49] LABS: INR 1.23; PROTHROMBIN TIME 14.6 seconds (11.9-14.5)
[2018-02-28 17:50] LABS: PARTIAL THROMBOPLASTIN TIME 30.8 seconds (23.8-35.5)
[2018-02-28 17:57] LABS: ALBUMIN 3.9 g/dL (3.5-5.0); ALBUMIN/GLOBULIN RATIO 1.1 (0.8-2.0); ANION GAP 14.3 mmol/L (8-16); CALCIUM 9.4 mg/dL (8.4-10.2); CREATININE, SERUM 1.53 mg/dL (0.72-1.25); POTASSIUM 4.3 mmol/L (3.5-5.1)
[2018-02-28 18:04] LABS: CREATINE KINASE MB 2.4 ng/mL (0-5.0)
--- NOTE | 2018-02-28 18:14 | Diagnostic Imaging Report ---
PROCEDURE: A single AP view of the chest. COMPARISON: [facility], CT, CT CHEST W, 11/13/2017, 6:47. INDICATIONS: SHORTNESS OF BREATH FOR 1 WEEK. COUGH FINDINGS: See impression. IMPRESSION: 1. Stable mild cardiomegaly, with central pulmonary venous congestion and bilateral mild interstitial edema. 2. Multiple linear opacities in bilateral lower lobes, likely reflect subsegmental atelectasis or scarring. 3. Likely small bilateral pleural effusions. Jae Hernandes M.D. Dictated by: Jae Hernandes M.D. on 02/28/2018 at 18:15 Electronically approved by: Jae Hernandes M.D. on 02/28/2018 at 18:15
[2018-02-28] MEDS ORDERED: DILTIAZEM HCL 100 ML IV STA (18:33)
[2018-02-28] MEDS ORDERED: DILTIAZEM HCL IV SOLN 125 MG in SODIUM CHLORIDE 0.9% 100 ML 100 ML IV PRN (19:00)
[2018-02-28] MEDS ORDERED: SODIUM CHLORIDE FLUSH 10 ML SYR INJ PRN (19:00)
[2018-02-28] MEDS: ENOXAPARIN SODIUM INJ 100 MG/ML SYR SC SCH (19:13)
[2018-02-28] MEDS: DILTIAZEM HCL 100 ML IV SCH (19:17)
[2018-02-28] MEDS ORDERED: SODIUM CHLORIDE 0.9% 50ML 50 ML ONE (19:25)
[2018-02-28] MEDS ORDERED: IOPAMIDOL 370 MG/ML 200 ML INFUS..BTL INJ ONE (19:28)
--- NOTE | 2018-02-28 19:43 | Diagnostic Imaging Report ---
EXAM: CT Chest WITH contrast, Pulmonary angiogram protocol 02/28/2018 6:33 PM INDICATION: Shortness of breath. \S\PE PROTOCOL COMPARISON: Chest x-ray 02/28/2018. CT chest 11/13/2017 TECHNIQUE: Chest was scanned utilizing a multidetector helical scanner from the lung apex through the level of the adrenal glands without administration of IV contrast. Coronal and sagittal reformations were obtained. Pulmonary emboli protocol was performed. IV CONTRAST: 100 mL of Isovue 370 COMPLICATIONS: None. T1 26. Creatinine 1.53. GFR 47. Patient wasn't able to be hydrated. RADIATION DOSE: Total DLP: 542.6 mGy*cm Estimated effective dose: (DLP x 0.014 x size factor) mSv CTDIvol has been reviewed. It is below the limits set by the Radiation Protocol Committee (RPC). FINDINGS: LINES/ TUBES: None. LUNGS AND AIRWAYS: Lungs are diffusely hyperinflated. Subsegmental atelectasis are again seen in the right middle lobe and both lower lobes. Round atelectasis in both lower lobes are again seen. Bilateral bronchial wall thickening. PLEURA: Bilateral pleural thickening are again seen, right greater than left. Numerous calcifications are identified in the soft tissue pleural thickening. No discrete soft tissue related mass. Trace loculated fluid in the posterior right pleura is again seen. Right posterior pleura measures 2.2 cm in thickness and the left posterior pleura measures 1.2 cm. No pulmonary emboli. HEART AND MEDIASTINUM: The thyroid gland is normal. No mediastinal, hilar or axillary lymphadenopathy. The heart is mildly enlarged. Left ventricular hypertrophy. There is no pericardial effusion. There are significant atherosclerotic calcifications in the coronary arteries. Coronary artery stent in the LAD. UPPER ABDOMEN: Severe fatty atrophy of the pancreas. Upper abdomen is otherwise unremarkable. BONES: The visualized bony thorax is within normal limits. SOFT TISSUES: Unremarkable. IMPRESSION: 1. No pulmonary emboli. 2. Diffuse pleural thickening with superimposed calcification suggestive of asbestos related pleural disease. Recommend surveillance for mesothelioma. 3. Mild cardiomegaly with hypertrophic left ventricle. 4. COPD and chronic atelectasis. Chronic bronchitis. Signed by: Dr. Corona García M.D. on 02/28/2018 7:39 PM
[2018-02-28 21:00] VITALS: BP 120/105
[2018-02-28] MEDS ORDERED: ENOXAPARIN SODIUM INJ 100 MG/ML SYR SC SCH (21:00)
[2018-02-28 21:30] VITALS: BP 120/102
[2018-02-28 22:50] VITALS: BP 134/80
[2018-02-28 22:55] VITALS: BP 124/102
[2018-03-01] VITALS (51 sets, daily range): BP systolic 82–154; BP diastolic 61–115
[2018-03-01] MEDS: ENOXAPARIN SODIUM INJ 100 MG/ML SYR SC SCH (06:34)
[2018-03-01 06:40] LABS: BASOPHILS % 0.2 % (0.0-1.0); EOSINOPHILS # (AUTO) 0.1 (0.0-0.4); HEMATOCRIT 36.6 % (38.2-49.6); HEMOGLOBIN 12.3 g/dL (14.0-18.0); LYMPHOCYTES # (AUTO) 2.5 (1.0-3.2); LYMPHOCYTES % 30.8 % (18.0-39.1); MEAN CORPUSCULAR HEMOGLOBIN 27.9 pg (28-32); MEAN CORPUSCULAR HGB CONC 33.6 g/dL (31-35); MONOCYTES # (AUTO) 0.7 (0.2-0.8); MONOCYTES % 8.4 % (4.4-11.3); NEUTROPHILS # (AUTO) 4.8 (2.1-6.9); NEUTROPHILS % 59.5 % (38.7-80.0); PLATELET COUNT 166 x10e3/uL (140-360); RED BLOOD COUNT 4.41 x10e6/uL (4.3-5.7); RED CELL DISTRIBUTION WIDTH 13.2 % (11.7-14.4)
[2018-03-01 07:03] LABS: ANION GAP 15.4 mmol/L (8-16); CALCIUM 9.5 mg/dL (8.4-10.2); CHOL/HDL RATIO 2.5 (3.9-4.7); CREATININE, SERUM 1.27 mg/dL (0.72-1.25); POTASSIUM 4.4 mmol/L (3.5-5.1)
[2018-03-01 07:11] LABS: CREATINE KINASE MB 1.6 ng/mL (0-5.0)
[2018-03-01] MEDS ORDERED: METOPROLOL TARTRATE INJ 1 MG/ML VIAL IV PRN (09:00)
[2018-03-01] MEDS ORDERED: AMLODIPINE BESYLATE 5 MG TAB PO SCH (09:00)
[2018-03-01] MEDS ORDERED: DEXTROSE 50% SYRINGE 50 ML IV PRN (09:30)
[2018-03-01] MEDS: METOPROLOL TARTRATE 25 MG TAB PO SCH ×2 (09:49→17:08)
[2018-03-01] MEDS: AMLODIPINE BESYLATE 10 MG TAB PO SCH (09:49)
[2018-03-01] MEDS: APIXABAN 5 MG TABLET PO SCH ×2 (09:49→17:08)
[2018-03-01] MEDS: RANOLAZINE 500 MG TABSR PO SCH ×2 (09:50→17:08)
[2018-03-01] MEDS: ASCORBIC ACID 500 MG TAB PO SCH (09:50)
[2018-03-01] MEDS: CLOPIDOGREL BISULFATE 75 MG TAB PO SCH (09:50)
[2018-03-01] MEDS: FUROSEMIDE 40 MG TAB PO SCH (09:50)
[2018-03-01] MEDS: POTASSIUM CHLORIDE 10 MEQ TABCR PO SCH (09:50)
[2018-03-01] MEDS: OCUVITE PRESERVISION TABLET PO SCH (10:00)
[2018-03-01] MEDS: HYDROCHLOROTHIAZIDE 25 MG TAB PO SCH (10:41)
[2018-03-01] MEDS: INSULIN DETEMIR 100 UNIT/ML PEN SQ SCH ×2 (10:41→17:08)
[2018-03-01] MEDS: VALSARTAN 160 MG TAB PO SCH (10:41)
--- NOTE | 2018-03-01 10:42 | Consultation ---
DATE OF CONSULTATION: PULMONARY CONSULTATION Patient of Dr. Cardoza, Dr. West, Dr. Bae, Dr. Hickman. 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 Face turned red. He was found to have new onset of atrial fibrillation. 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 He has a history of hypertension, hyperlipidemia, coronary disease. He has had 3 stents placed in the LAD. He was also found to have a pleural scar likely related to asbestosis. There is no history of pneumonia or pleurisy or chest trauma that he can recall. ALLERGIES: PENICILLIN. FAMILY HISTORY: Positive for diabetes. He has a history of subdural hematoma drained in 1979. Smoked in the past. 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 MEDICATIONS: Include aspirin, Lasix, Lantus insulin, Humalog insulin, potassium, Valsartan, hydrochlorothiazide, metformin, Norvasc, Plavix, lopressor, and Ranexa. He is usually active. He has a history of pneumonia in October of last year. History of chronic kidney disease, diabetes, coronary artery disease. PHYSICAL EXAMINATION GENERAL: A well-developed white male in no acute distress. Looking his stated age. He feels better than on admission. He is on a Cardizem drip. VITALS: Temperature 96.1, pulse 91, respiratory rate regular, blood pressure 128/80. HEENT: Head is normocephalic and atraumatic. LUNGS: Bilateral rales. HEART: Regular rhythm. ABDOMEN: Nontender. EXTREMITIES: Not edematous. IMPRESSION 1. Atrial fibrillation with rapid ventricular response causing diastolic heart failure. 2. Diabetes, insulin-dependent. 3. Coronary disease. PLAN: Rate control and anticoagulation. There is no evidence of myocardial infarction at this time. Thank you for this kind referral. Job#: [id number] [place]
--- NOTE | 2018-03-01 10:57 | Consultation ---
DATE OF CONSULTATION: February 28, 2018 REASON FOR CONSULTATION: AFib with RVR. CONSULTING PHYSICIAN: Dr. Gan. HPI: This is a 57-year-old male that presented with chest tightness and pressure. He stated yesterday he was going back his apartment, he started having shortness of breath, very tired that he decided to come into the emergency room for evaluation. In the ER, they found out he was having AFib with RVR and he was transferred to ICU on a Cardizem drip. He has a history of CAD, recent cardiac catheterization with medical management, and previous stents in the past. He denies any headache, any nausea or vomiting, any diaphoresis or palpitations. PAST MEDICAL HISTORY: Hypertension, diabetes, CAD, SD with stents in the past. PAST SURGICAL HISTORY: Cardiac catheterization with stent placement. FAMILY HISTORY: Positive for CAD. SOCIAL HISTORY: No smoking. No drinking. He lives at home alone. MEDICATIONS: See med list. ALLERGIES: HE IS ALLERGIC TO PENICILLIN. REVIEW OF SYSTEMS: Negative except those mentioned above. PHYSICAL EXAMINATION VITAL SIGNS: Temperature 97, heart rate 110, blood pressure 126/76, respirations 18, oxygen saturation 99% on 2 liters nasal cannula. GENERAL: He is awake, alert, and oriented times 3. HEENT: Mucous membrane moist. NECK: Supple. LUNGS: Bilateral clear to auscultation. CARDIOVASCULAR: Irregularly irregular. ABDOMEN: Soft. NEUROLOGICAL: Intact. EXTREMITIES: With no edema. LABORATORY DATA: Sodium 137, potassium 4.4, chloride 102, CO2 of 24, BUN 21, creatinine 1.27, glucose 162. White blood cells 8.06, hemoglobin 12.3, hematocrit 36.6, platelet 166. PT 14.6, PTT 30.8, INR 1.23. IMPRESSION 1. New onset atrial fibrillation with rapid ventricular response. 2. Hypertension. 3. Coronary artery disease. 4. Diabetes. 5. History of recent cardiac catheterization. ASSESSMENT AND PLAN: Heart rate is still in AFib on the higher side. We are going to continue beta-marcio. Resume his home medications. He has been counseled on caffeine cessation. We will go ahead and check his TSH. Get another echo to reassess the LV and the valve function. I discussed about p.o. anticoagulation, which he agreed. So, we will go ahead and start him on Eliquis. Further cardiac workup pending clinical course. Thank you for this consultation. Dictated By: Homero John NP Job#: [id number] ATIF
[2018-03-01] MEDS: INSULIN LISPRO 100 UNIT/1 ML 3ML VIAL SQ SCH ×3 (12:04→21:30)
[2018-03-01] MEDS: METFORMIN HCL 850 MG TAB PO SCH ×2 (12:07→17:08)
[2018-03-01 15:05] LABS: CREATINE KINASE MB 1.5 ng/mL (0-5.0)
[2018-03-01] MEDS ORDERED: METFORMIN 850 MG PO SCH (17:00)
[2018-03-01] MEDS: DILTIAZEM HCL 100 ML IV SCH (19:00)
[2018-03-01] MEDS: ACETAMINOPHEN 325 MG TAB PO PRN (19:35)
[2018-03-01] MEDS ORDERED: ONDANSETRON HCL 4 MG ORAL DISINTEGRATING TAB ONE (19:56)
[2018-03-01] MEDS ORDERED: ONDANSETRON HCL 4 MG ORAL DISINTEGRATING TAB PO PRN (20:00)
[2018-03-01] MEDS ORDERED: ATORVASTATIN 20 MG TAB PO SCH (21:00)
[2018-03-02] VITALS (17 sets, daily range): BP systolic 98–136; BP diastolic 59–98
[2018-03-02 06:38] LABS: BASOPHILS % 0.3 % (0.0-1.0); EOSINOPHILS # (AUTO) 0.1 (0.0-0.4); EOSINOPHILS % 1.4 % (0.0-6.0); HEMATOCRIT 36.5 % (38.2-49.6); HEMOGLOBIN 12.1 g/dL (14.0-18.0); LYMPHOCYTES # (AUTO) 2.4 (1.0-3.2); MEAN CORPUSCULAR HEMOGLOBIN 27.9 pg (28-32); MEAN CORPUSCULAR HGB CONC 33.2 g/dL (31-35); MEAN CORPUSCULAR VOLUME 84.1 fL (81-99); MONOCYTES # (AUTO) 0.6 (0.2-0.8); MONOCYTES % 8.6 % (4.4-11.3); NEUTROPHILS # (AUTO) 3.4 (2.1-6.9); NEUTROPHILS % 52.4 % (38.7-80.0); PLATELET COUNT 156 x10e3/uL (140-360); RED BLOOD COUNT 4.34 x10e6/uL (4.3-5.7); RED CELL DISTRIBUTION WIDTH 13.3 % (11.7-14.4)
[2018-03-02 06:52] LABS: INR 1.51; PROTHROMBIN TIME 17.1 seconds (11.9-14.5)
[2018-03-02 07:09] LABS: ANION GAP 13.4 mmol/L (8-16); CALCIUM 9.2 mg/dL (8.4-10.2); CREATININE, SERUM 1.38 mg/dL (0.72-1.25); POTASSIUM 4.4 mmol/L (3.5-5.1)
[2018-03-02] MEDS: INSULIN LISPRO 100 UNIT/1 ML 3ML VIAL SQ SCH ×2 (07:25→11:33)
[2018-03-02] MEDS: VALSARTAN 160 MG TAB PO SCH (08:10)
[2018-03-02] MEDS: APIXABAN 5 MG TABLET PO SCH (08:10)
[2018-03-02] MEDS: FUROSEMIDE 40 MG TAB PO SCH (08:10)
[2018-03-02] MEDS: METFORMIN HCL 850 MG TAB PO SCH (08:10)
[2018-03-02] MEDS: OCUVITE PRESERVISION TABLET PO SCH (08:10)
[2018-03-02] MEDS: CLOPIDOGREL BISULFATE 75 MG TAB PO SCH (08:10)
[2018-03-02] MEDS: HYDROCHLOROTHIAZIDE 25 MG TAB PO SCH (08:10)
[2018-03-02] MEDS: ACETAMINOPHEN 325 MG TAB PO PRN (08:11)
[2018-03-02] MEDS: AMLODIPINE BESYLATE 10 MG TAB PO SCH (08:11)
[2018-03-02] MEDS: RANOLAZINE 500 MG TABSR PO SCH (08:11)
[2018-03-02] MEDS: ASCORBIC ACID 500 MG TAB PO SCH (08:11)
[2018-03-02] MEDS: METOPROLOL TARTRATE 25 MG TAB PO SCH (08:11)
[2018-03-02] MEDS: POTASSIUM CHLORIDE 10 MEQ TABCR PO SCH (08:11)
[2018-03-02] MEDS ORDERED: DIGOXIN INJ 0.25 MG/ML 2 ML AMP IV ONE (08:45)
[2018-03-02] MEDS: INSULIN DETEMIR 100 UNIT/ML PEN SQ SCH (08:58)
[2018-03-02] MEDS ORDERED: NON-FORMULARY MEDICATION (Mu-Vits-Min Th/Lycopene/Lutein (Centrum Silver Tablet) 1 TAB) PO SCH (09:00)
[2018-03-02] MEDS ORDERED: NON-FORMULARY MEDICATION (Valsartan/Hydrochlorothiazide (Diovan Hct 320-25 Mg Tablet) 1 TA PO SCH (09:00)
[2018-03-02] MEDS ORDERED: ASCORBATE CALCIUM PO SCH (09:00)
[2018-03-02] MEDS ORDERED: APIXABAN (09:40)
[2018-03-02] MEDS ORDERED: DIGOXIN125 MCG PO (09:41)
--- NOTE | 2018-03-03 15:22 | Discharge Summary ---
Patient of Dr. Cardoza, Dr. Monson, Dr. West. A charming 57-year-old gentleman admitted through the emergency room with sudden onset of shortness of breath, feeling tired, turning red after returning to work. He was found to have atrial fibrillation with rapid ventricular response. He was started on a Cardizem drip and rate was controlled. He has a history of coronary artery disease, recent cardiac catheterization. Medical management was recommended. He has previous stents. History of diabetes, hypertension, coronary artery disease. Heart rate was controlled with Cardizem and metoprolol. He was anticoagulated with apixaban. Did complain of some headache, and this was controlled with Tylenol. Will follow up with Dr. West for this problem if it persists. He was discharged on: 1. Tylenol p.r.n. 325 mg q.6 h. 2. Norvasc 10 mg a day. 3. Vitamin C. 4. Lipitor 20 mg. 5. Plavix 75 mg. 6. Lasix 40 mg. 7. Lantus insulin 15 units twice a day. 8. Lisinopril on a sliding scale. 9. Metformin 850 mg b.i.d. 10. Metoprolol 25 mg b.i.d. 11. Potassium 10 mEq. 12. Ranexa 500 mg twice a day. 13. Valsartan 320 mg. 14. Hydrochlorothiazide 25 mg. 15. Aspirin 21. HANK BARRIOS MD Job#: [id number] [place]
== END 2018-03-02 14:04 | disposition home or self-care (01) | DRG 308 ==
LOC: ER 17:15 → ERHOLD 19:43 → ICU 20:40
PROVIDERS: ADMIT Internal Medicine Pulmonary Disease; ATTEND Internal Medicine Pulmonary Disease
DX: I48.91 Unspecified atrial fibrillation (principal); I50.21 Acute systolic (congestive) heart failure; I25.10 Atherosclerotic heart disease of native coronary artery without angina pectoris; R51 Headache; I11.0 Hypertensive heart disease with heart failure; E11.9 Type 2 diabetes mellitus without complications; E78.5 Hyperlipidemia, unspecified; J92.0 Pleural plaque with presence of asbestos; Z95.5 Presence of coronary angioplasty implant and graft; Z87.891 Personal history of nicotine dependence; Z79.02 Long term (current) use of antithrombotics/antiplatelets; Z79.4 Long term (current) use of insulin; Z88.0 Allergy status to penicillin
CPT/HCPCS: 36415; 71045; 71260; 80048; 80053; 80061; 82550; 82553; 82948; 83735; 83880; 84443; 84484; 85025; 85379; 85610; 85730; 93005; 93306; 96361; 96372; 99284; J1160; J1650; Q9967

== ENCOUNTER → 2018-06-08 | Outpatient (CLI) | payer OTHER ==
[~2018-06-08] MED LIST changes: +ACETAMINOPHEN325 M1 PO; +APIXABAN; +ASPIR-LOW81 MG PO; +DIGOXIN125 MCG PO; +METOPROLOL TART25 MG PO
--- NOTE | 2018-06-08 16:46 | Diagnostic Imaging Report ---
PROCEDURE: CT CHEST WITHOUT CONTRAST CT scan of the chest WITHOUT intravenous contrast, using standard protocol. TECHNIQUE: The chest was scanned utilizing a multidetector helical scanner from the apex to the level of the adrenal glands. No IV contrast was administered. Coronal and sagittal multiplanar reformations were obtained. COMPARISON: None. INDICATIONS: DYSPNEA, PNEUMONIA FINDINGS: Lines/tubes: None. Lungs and Pleura: Subpleural scarlike opacities throughout both lungs are again seen. Areas of rounded atelectasis in the lung bases appear unchanged. There is bilateral bronchial wall thickening which is also stable. Bilateral pleural thickening with associated pleural calcifications appears overall stable. There is a small right loculated pleural effusion, unchanged. A 3 mm subpleural nodule in the right upper lobe (series 3, image 50) is unchanged. No new consolidation or pulmonary parenchymal masses. No new pleural-based masses are identified. No pneumothorax. Heart and mediastinum: The thyroid gland is normal. No significant mediastinal, hilar or axillary lymphadenopathy is seen. Mild cardiomegaly. No pericardial effusion. Extensive atherosclerotic calcifications of the coronary arteries and thoracic aorta. A stent is again seen within the LAD. There are calcifications of the mitral annulus and of the aortic root. Soft tissues: A soft tissue defect in the left medial breast may represent a scar or sinus tract. This is unchanged from the prior examination. Correlate with physical examination. Abdomen: Limited views of the upper abdomen show no specific abnormality. Bones: Multilevel degenerative changes of the thoracic spine IMPRESSION: Bibasilar scarring and rounded atelectasis. There is chronic pleural thickening with calcified pleural plaques bilaterally. The constellation of findings are consistent with asbestos related pleural disease. No new pulmonary parenchymal or pleural masses. Dictated by: Walker Soto M.D. on 06/08/2018 at 16:51 Electronically approved by: Walker Soto M.D. on 06/08/2018 at 16:51
== END ==
LOC: CT 14:55
PROVIDERS: ATTEND Internal Medicine Critical Care Medicine
DX: R06.00 Dyspnea, unspecified (principal); J18.9 Pneumonia, unspecified organism
CPT/HCPCS: 71250